=== PATIENT | female | born 1980 | race Two or more races ===

== ENCOUNTER 2022-11-18 10:39 | Inpatient (IN) | payer BC, OTHER ==
[~2022-11-18] VITALS: Ht 154.9 cm; Wt 64.9 kg
[2022-11-18 11:28] LABS: Hematocrit 22.8 % (36.0-46.0); Mean Corpuscular Hemoglobin 17.4 pg (28.0-32.0); Mean Corpuscular Hgb Conc. 29.7 g/dL (32.0-36.0); Mean Corpuscular Volume 58.6 fL (80.0-100.0); White Blood Cell 2.4 10^3/uL (4.4-10.8)
[2022-11-18 11:39] LABS: Hemoglobin 6.8 g/dL (12.2-16.2)
[2022-11-18 11:40] LABS: Band Neutrophils % (manual) 0; Basophils % (manual) 0 (0.0-2.0); Blast Cells 0; Eosinophils % (manual) 0 (0-7); Metamyelocytes % 0; Myelocytes % 0; Promyelocytes % 0; Reactive Lymphocytes 0; Red Cell Distribution Width 20.6 % (11.8-14.3)
[2022-11-18 11:42] LABS: Albumin 3.5 g/dL (3.4-5.0); Calcium 8.5 mg/dL (8.5-10.1); Potassium 3.3 mmol/L (3.5-5.1)
[2022-11-18 11:44] LABS: Bilirubin, Total 0.3 mg/dL (0.2-1.0); Total Protein 6.6 g/dL (6.4-8.2)
[2022-11-18] MEDS ORDERED: SODIUM CHLORIDE 0.9% 1,000 ML IV ONE (14:00)
[2022-11-18] MEDS ORDERED: ONDANSETRON HCL 4 MG/2 ML VIAL IV PRN (14:00)
[2022-11-18] MEDS ORDERED: POTASSIUM CHL 20 Meq TABLET PO ONE (14:00)
[2022-11-18 14:53] LABS: % Iron Saturation 3.2 % (15-50)
[2022-11-18] MEDS: PANTOPRAZOLE 40 MG/10 ML VIAL INJ IV SCH (15:25)
[2022-11-18 16:50] VITALS: BP 123/59
[2022-11-18 17:05] VITALS: BP 133/73
[2022-11-18 17:21] LABS: INR 1.02 (0.9-1.15); Partial Thromboplastin Time 23.9 SEC (24.5-34.5)
[2022-11-18 17:31] LABS: Ferritin 2.4 ng/mL (10-322); Folate (Folic Acid) 6.7 ng/mL (5.38-24)
[2022-11-18 17:43] LABS: Lymphocytes % (manual) 43 (10.0-50.0); Monocytes % (manual) 8 (0-12)
[2022-11-18 18:50] VITALS: BP 130/71
[2022-11-18 21:28] LABS: Hematocrit 26.1 % (36.0-46.0)
[2022-11-19 05:57] LABS: Urine Bacteria FEW /hpf (None Seen); Urine Blood Negative /uL (Negative); Urine Specific Gravity 1.007 (1.001-1.035); Urine WBC 5 /hpf (0 - 5)
[2022-11-19 06:51] LABS: Calcium 8.9 mg/dL (8.5-10.1); Potassium 3.7 mmol/L (3.5-5.1)
[2022-11-19 06:54] LABS: BUN/Creatinine Ratio 7.1 (10.0-20.0)
[2022-11-19 07:15] LABS: Eosinophils # (auto) 0.1 10 ^3/uL (0-0.8); Hemoglobin 9.1 g/dL (12.2-16.2); Monocytes # (auto) 0.3 10 ^3/uL (0-1.3); Nucleated Red Blood Cells % 0.1 %
[2022-11-19 07:19] LABS: Basophils # (auto) 0 10 ^3/uL (0-0.2); Basophils % (auto) 0.8 % (0.0-2.0); Eosinophils % (auto) 1.2 % (0.0-7.0); Hematocrit 29.1 % (36.0-46.0); Lymphocytes % (auto) 23.7 % (10.0-50.0); Mean Corpuscular Hemoglobin 19.7 pg (28.0-32.0); Mean Corpuscular Hgb Conc. 31.3 g/dL (32.0-36.0); Mean Corpuscular Volume 62.9 fL (80.0-100.0); Monocytes % (auto) 6.9 % (0.0-12.0); Neutrophils # (auto) 2.9 10 ^3/uL (1.6-8.6); Neutrophils % (auto) 67.4 % (37.0-80.0); Red Blood Cells 4.63 10^6/uL (4.0-5.20); White Blood Cell 4.4 10^3/uL (4.4-10.8)
[2022-11-19 07:21] LABS: Red Cell Distribution Width 26.8 % (11.8-14.3)
[2022-11-19] MEDS ORDERED: FOLIC ACID 1 MG TAB PO SCH (10:00)
[2022-11-19] MEDS: PANTOPRAZOLE 40 MG/10 ML VIAL INJ IV SCH (10:15)
[2022-11-19] MEDS ORDERED: DOCUSATE SOD 100 MG CAP PO PRN (11:45)
[2022-11-19] MEDS ORDERED: FERROUS SULFATE 325mg EC TAB PO SCH (11:45)
[2022-11-19] MEDS ORDERED: BUPRTAB PO (11:47)
[2022-11-19] MEDS ORDERED: FER325T PO (11:47)
[2022-11-19] MEDS ORDERED: CITA-77 PO (11:47)
[2022-11-19] MEDS ORDERED: DOCU-265 PO (11:47)
[2022-11-19 12:10] VITALS: BP 124/54
== END 2022-11-19 12:10 | disposition home or self-care (01) | DRG 812 ==
LOC: ER 10:39 → TELE 13:57
PROVIDERS: ADMIT Registered Nurse; ATTEND Internal Medicine
PROC: 30233N1 Transfusion of Nonautologous Red Blood Cells into Peripheral Vein, Percutaneous Approach (ICD-10-PCS; principal; 2022-11-18)
DX: D50.9 Iron deficiency anemia, unspecified (principal); F32.A Depression, unspecified; Z98.84 Bariatric surgery status; Z91.148 Patient's other noncompliance with medication regimen for other reason
CPT/HCPCS: 36415; 36430; 80048; 80053; 81001; 82607; 82728; 82746; 83540; 83550; 83615; 85007; 85014; 85018; 85025; 85027; 85045; 85049; 85384; 85610; 85730; 86850; 86900; 86901; 86920; 96361; 96374; 99291; C9113; G0378; J2405